=== PATIENT | female | born 1995 | race Caucasian/White ===

== ENCOUNTER 2016-11-03 19:22 | Emergency (ER) | payer BC, OTHER ==
[2016-11-03 19:38] VITALS: BP 113/67
--- NOTE | 2016-11-03 20:32 | UC ---
Alexandr Garg Claudia, scribed for Kaiden Soto MD on 11/03/16 at 1951 . Lower Extremity/Ankle HPI - HPI Summary HPI Summary: 21 year old female presents to the [facility] with swelling and tenderness to the anterior aspect of her right tib-fib. Pt notes she was playing softball when a ball hit her there. She denies any fever chills. Pt notes aggravated pain with ambulation, dorsiflexion and plantarflexion of the right foot. - History of Current Complaint Chief Complaint: UCLowerExtremity Stated Complaint: LEG INJURY Time Seen by Provider: 11/03/16 19:40 Hx Obtained From: Patient Hx Last Menstrual Period: 10/16/16 Onset/Duration: Sudden Onset, Lasting Hours - Allergies/Home Medications Allergies/Adverse Reactions: Allergies Allergy/AdvReac Type Severity Reaction Status Date / Time No Known Allergies Allergy Verified 11/03/16 19:31 Home Medications: Home Medications NK [No Home Medications Reported] 11/03/16 [History Confirmed 11/03/16] PMH/Surg Hx/FS Hx/Imm Hx Previously Healthy: Yes Endocrine History Of: Denies: Diabetes Cardiovascular History Of: Denies: Hypertension - Surgical History Surgical History: None - Family History Known Family History: Negative: Cardiac Disease, Hypertension - Social History Occupation: Student Lives: With Family Alcohol Use: Occasionally Substance Use Type: None Smoking Status (MU): Never Smoked Tobacco - Immunization History Most Recent Influenza Vaccination: fall 2015 Review of Systems Constitutional: Negative, Other - No fever/chills Skin: Negative Eyes: Negative ENT: Negative Respiratory: Negative Cardiovascular: Negative Gastrointestinal: Negative Genitourinary: Negative Motor: Negative Neurovascular: Other - swelling and tenderness to the anterior aspect of the right tib-fib Musculoskeletal: Negative Neurological: Negative Psychological: Negative All Other Systems Reviewed And Are Negative: Yes Physical Exam Triage Information Reviewed: Yes Vital Signs: Initial Vital Signs Temp 98.7 F 11/03/16 19:33 Pulse 63 11/03/16 19:33 Resp 16 11/03/16 19:33 BP 113/67 11/03/16 19:33 Pulse Ox 99 11/03/16 19:33 - Additional Comments Vital signs: Reviewed Gen.: Patient is a well developed and nourished female in no acute distress. Patient is sitting comfortably on the stretcher. Head: Normacephalic and atraumatic Eyes: PERRLA, EOMI x2. Ears: Right ear canal and TM WNL and Left ear canal and TM WNL Nose and mouth: WNL Neck: Supple, Positive bilateral submandibular and anterior cervical lymphadenopathy. No JVD Lungs: CTA B/L CVS: S1 & S2 present. No murmurs appreciated. ABDOMEN: Soft NT w/ positive BS. EXT: FROM x 4 Swelling and tenderness to the anterior aspect of the right tib- fib NEURO: A+O X 3. Diagnostics - Radiology Right Lower Leg XR Xray Interpretation: No Acute Changes - No fracture noted, soft tissue swelling appreciated Radiology Interpretation Completed By: ED Physician Lower Extremity Course/Dx - Course Course Of Treatment: 21 year old female presents to the [facility] with swelling and tenderness to the anterior aspect of her right tib-fib. Pt notes she was playing softball when a ball hit her there. She denies any fever chills. Pt notes aggravated pain with ambulation, dorsiflexion and plantarflexion of the right foot. XR of tib-fib shows no acute fracture or dislocation. Since the XR shows no acute pathology only swelling, the pt was given instructions to take ibuprofen for pain and ice the area of swelling also she was given instructions to return or go to ED with increase in pain, swlling, numbness or if she sees that her skin is shiny to rule out compartment syndrome. At this time the pt does not have any compartment suyndrome but since the injury is at the lower extremity I advise to look out for these symptoms. Pt is advised to f/u with PCP. - Differential Dx/Diagnosis Differential Diagnosis/HQI/PQRI: Fracture (Closed), Sprain, Strain Provider Diagnoses: lower leg contusion. swelling Discharge - Discharge Plan Condition: Stable Disposition: HOME Patient Education Materials: Contusion in Adults (ED) Referrals: [facility] [Outside] The documentation as recorded by the Alexandr garcia Claudia accurately reflects the service I personally performed and the decisions made by , Kaiden Soto MD.
[2016-11-03] MEDS ORDERED: Ibuprofen TAB* 600 MG PO ONE (20:40)
--- NOTE | 2016-11-03 21:23 | RAD ---
Indication: Right lower leg pain. 2 views of the right lower leg demonstrates no fracture. No other bone or joint abnormality is identified. IMPRESSION: No fracture of the right lower leg is noted.
== END 2016-11-03 20:50 | disposition home or self-care (01) ==
LOC: UCEAST 19:22
DX: S80.11XA Contusion of right lower leg, initial encounter (principal); W21.07XA Struck by softball, initial encounter; Y93.64 Activity, baseball; Y92.320 Baseball field as the place of occurrence of the external cause; R60.0 Localized edema
CPT/HCPCS: 99202; A9270-GY; G0463